=== PATIENT | female | born 1985 | race Hispanic/Latino ===

== ENCOUNTER 2023-02-12 18:03 | Emergency (ER) | payer SELFPAY ==
[2023-02-12] MEDS ORDERED: Sodium Chloride 0.9% 1,000 ML ONE ×2 (18:40→19:31)
[2023-02-12] MEDS ORDERED: diphenhydrAMINE 50 MG/ML VIAL ONE (18:40)
[2023-02-12 18:56] LABS: #Basophils 0.2 thou/uL (0.0-0.2); #Eosinphils 0.2 thou/uL (0.0-0.7); #Monocytes 1.3 thou/uL (0.11-0.59); #Neutrophils 7.9 thou/uL (1.40-6.50); %Basophils 1.5 % (0.0-1.0); %Eosinophils 1.6 % (0.0-10.0); %Lymphocytes 23.8 % (21.0-51.0); %Monocytes 10.1 % (0.0-10.0); Hematocrit 42.7 % (36.0-47.0); Hemoglobin 14.1 g/dL (12.0-16.0); Mean Corpuscular HGB CONC 33.1 g/dL (32.0-36.0); Mean Corpuscular Hemoglobin 30.3 pg (27.0-31.0); Mean Corpuscular Volume 91.8 fl (78.0-98.0); Mean Platelet Volume 7.3 fL (7.4-10.4); Platelet Count 301 10x3/uL (130-400); RBC Distribution Width 11.4 % (11.5-14.5); Red Blood Cell (RBC) Count 4.66 mill/uL (4.20-5.40); White Blood Cell (WBC) Count 12.5 10x3/uL (4.8-10.8)
[2023-02-12 19:14] LABS: Amphetamine Detected (NotDetected); Barbiturates Screen Not Detected (NotDetected); Benzodiazepine Screen Not Detected (NotDetected); Cocaine Metabolite Screen Not Detected (NotDetected); Methadone Not Detected (NotDetected); Methamphetamine Detected (NotDetected); Opiate Screen Not Detected (NotDetected); Oxycodone Screen Not Detected (NotDetected); Phencyclidine (PCP) Not Detected (NotDetected); THC/Cannabinoid Screen Detected (NotDetected); Tricyclic Screen Not Detected (NotDetected)
[2023-02-12 19:15] LABS: ALT (SGPT) 23 U/L (8-55); AST (SGOT) 23 U/L (5-34); Albumin 4.5 g/dL (3.5-5.0); Alkaline Phosphatase 79 U/L (40-110); Anion Gap 18 mmol/L (10-20); BUN (Urea Nitrogen) 11 mg/dL (7.0-18.7); Bilirubin, Total 0.7 mg/dL (0.2-1.2); Calc. Creatinine Clearance 0 mL/min (70-130); Calcium 8.9 mg/dL (7.8-10.44); Carbon Dioxide 17 mmol/L (22-29); Chloride 107 mmol/L (98-107); Estimated GFR 55; Globulin 2.7 g/dL (2.4-3.5); Glucose 276 mg/dL (70-105); Protein, Total 7.2 g/dL (6.0-8.3); Sodium 138 mmol/L (136-145)
[2023-02-12 19:18] LABS: Bilirubin Negative (Negative); Blood, Urine Negative (Negative); Glucose, Urine (Dipstick) >=1000 mg/dL (Negative); Ketone, Urine Trace mg/dL (Negative); Leukocyte Negative (Negative); Nitrite Negative (Negative); Protein, Urine (Dipstick) 30 mg/dL (Neg-Trace); Urobilinogen 0.2 mg/dL (Less than 2); pH, Urine 5.5 (5.0-9.0)
[2023-02-12 19:25] LABS: Bacteria/HPF 2+ HPF (None Seen); Clarity Hazy (Clear); Mucous/LPF 1+ LPF (<2+); RBC/HPF 0-3 HPF (0-3); Specific Gravity, Urine 1.034 (1.002-1.036); Transitional Epithelial 0-3 HPF (None Seen); WBC/HPF 0-3 HPF (0-3)
[2023-02-12 19:26] LABS: Urine Culture Reflex No No
== END 2023-02-12 20:05 | disposition home or self-care (01) ==
LOC: NAV ERS 18:03
DX: T78.40XA Allergy, unspecified, initial encounter (principal); E86.0 Dehydration; E11.65 Type 2 diabetes mellitus with hyperglycemia; J45.909 Unspecified asthma, uncomplicated; E78.5 Hyperlipidemia, unspecified; I10 Essential (primary) hypertension; F17.210 Nicotine dependence, cigarettes, uncomplicated; Z79.899 Other long term (current) drug therapy
CPT/HCPCS: 80053; 80306; 81001; 85025; 96361; 96374; J1200; J7050

== ENCOUNTER 2024-02-04 12:41 | Emergency (ER) | payer SELFPAY ==
[2024-02-04] MEDS ORDERED: Ipratropium/Albuterol 3 ML NEB ONE (13:41)
[2024-02-04] MEDS ORDERED: predniSONE 20 MG TAB ONE (13:41)
== END 2024-02-04 14:00 | disposition home or self-care (01) ==
LOC: NAV ERS 12:41
DX: J45.909 Unspecified asthma, uncomplicated (principal)
CPT/HCPCS: J7512; J7620